=== PATIENT | male | born 2000 | race Caucasian/White ===

== ENCOUNTER 2020-02-25 12:57 | Emergency (ER) | payer BC, SELFPAY ==
[2020-02-25 13:10] VITALS: BP 134/80; PULSE 93; RESP 20; TEMP 36.7; O2SAT 96; BMI 33.9
--- NOTE | 2020-02-25 13:29 | HMH.EDUTC ---
[facility] – [place] Disposition Clinical Impression: Encounter for laboratory testing for COVID-19 virus Otitis media Qualifiers: Otitis media type: unspecified Laterality: right Qualified Code(s): H66.91 - Otitis media, unspecified, right ear Disposition: Home, Self-Care Condition on Discharge: Good Instructions: DI for COVID-19 (Suspected or Confirmed ), COVID-19 Viral Test, COVID-19: Testing and Tracing, Preventing the Spread of Coronavirus Discharge Instructions Additional Instructions: *Monitor Temp, Over the counter Motrin or Tylenol as directed/as needed Tylenol every 4 hours and Motrin every 6 hours (as long as your family doctor has told you that you can take it) for fever or pain. and straight to ER if unable to lower temp less than 101.0 after medication given *Warm salt water gargles may help to soothe the throat *Throat Lozenges *Warm fluids like tea with honey may help to soothe the throat *Sleep elevated *Humidifier/Vaporizer *Flonase 2 sprays in each nostril daily but be aware that it may take 2-3 days before you notice improvement *Bromfed may cause drowsiness. Know how it effects you (your child) before driving, caring for small child, or sending your child to school. Not other antihistamines/allergy medications while taking bromfed Follow up IMMEDIATELY for new or worsening symptoms or no Noticeable improvement over the next 48-72 hours. 911 for difficulty breathing or swallowing You were tested for today for COVID19 your test result should be back in the next 24-48 hours, you may call to the [facility] to see if your test results are back in the next 48 hours [phone] [facility] hours are 9am-9pm You was given a handout with instructions for Self Quarantine and Self isolation for while you wait on test results and what to do if they are positive If you are positive the Health Dept will be contacting you also Prescriptions: Azithromycin [Z-Phillip 250mg Tab] 250 mg PO DIRECTED #6 tab Transmission Status: Pending to [facility] Referrals: PCP,No [Primary Care Provider] - As needed Forms: Work/School Release Time of Disposition: 13:32 Medical Decision Making - Holland Inquiry Pt receiving controlled substance: No Holland was queried for this patient: No Vital Signs: 02/25/20 13:10 Temperature 98.1 F Temperature Source Oral Pulse Rate [Right Brachial] 93 H Respiratory Rate 20 Blood Pressure [Right Arm] 134/80 Blood Pressure Mean [Right Arm] 98 Blood Pressure Source [Right Arm] Automatic Cuff Blood Pressure Position [Right Arm] Sitting 02 Sat by Pulse Oximetry 96 Oxygen Delivery Method Room Air Orders (Tests/Meds): ORDERS Category Date Time Status Covid-19 Nasal PCR Sendout P&[facility] Stat Lab 02/25/20 13:02 Ordered [facility] – [place] HPI - General Stated complaint: covid exposure Time Seen by Provider: 02/25/20 13:29 Mode of Arrival: Ambulatory Source of Information: Patient Limitations: No Limitations Description of Symptoms (Recalled from Triage Doc. by RN): PATIENT REQUESTING COVID TEST D/T EXPOSURE APPROX 2 WEEKS AGO; C/O SORE THROAT, HEADACHE, AND FEVER X 2 DAYS HEENT Symptoms (Recalled from RN notes): Yes Resp Symptoms (Recalled from RN notes): No Skin Symptoms (Recalled from RN notes): No MS Symptoms (Recalled from RN notes): No Functional Status (Recalled from RN notes): WNL - History of Present Illness Provider Complaint: Patient states that he was around someone about 2 weeks ago with COVID States that for the last couple of days he has been having sore throat, fever, body aches bilateral ear pain and headache and wants to get tested for COVID - Related Data Previous Rx's Medication Instructions Recorded Azithromycin [Z-Phillip 250mg Tab] 250 mg PO DIRECTED #6 tab 02/25/20 Allergies Allergy/AdvReac Type Severity Reaction Status Date / Time No Known Allergies Allergy Verified 03/09/19 11:05 - Worker's Comp Is this a Worker's Comp case?: No [facility] History - Hepatitis A Screen D
[2020-02-25 13:45] VITALS: BP 134/80; PULSE 93; RESP 20; TEMP 36.7; O2SAT 96
[2020-02-26 09:32] LABS: Covid-19 Nasal PCR Sendout P&C NEGATIVE
== END 2020-02-25 13:46 | disposition home or self-care (01) ==
PROVIDERS: Emergency Provider Nurse Practitioner
DX: Z20.828 Contact with and (suspected) exposure to other viral communicable diseases (principal); H66.91 Otitis media, unspecified, right ear
CPT/HCPCS: 99201; U0004

== ENCOUNTER → 2021-10-26 10:38 | Outpatient (CLI) | payer BC, SELFPAY ==
--- NOTE | 2021-10-26 10:47 | US_ITS ---
FINAL REPORT CLINICAL HISTORY: intermittent bilateral testicular pain X 2 years FINDINGS: Ultrasound images of the testicles were obtained bilaterally. Color Doppler images were obtained. The right testicle measures 4.1 x 2.7 x 2.7 cm. The left testicle measures 4.0 x 3.0 x 2.3 cm. There is relative hypervascularity of the bilateral testes and of the right and left epididymis that may be related to epididymitis. Small varicoceles are seen bilaterally. No intratesticular masses are identified. There are small hydroceles bilaterally. IMPRESSION: Increased vascularity of bilateral testes and right and left epididymis. Small bilateral varicoceles. Reviewed, Interpreted and Dictated by Raj Ramos MD Transcribed by Heather Byrnes Authenticated and [facility]
== END ==
LOC: RAD 10:39
PROVIDERS: PCP Family Medicine; Visit Provider Family Medicine
DX: N50.82 Scrotal pain (principal)
CPT/HCPCS: 76870

== ENCOUNTER → 2022-01-05 11:06 | Outpatient (CLI) | payer BC, SELFPAY ==
--- NOTE | 2022-01-05 11:12 | CT_ITS ---
FINAL REPORT TECHNIQUE: Axial images of the pelvis were obtained by computed tomography after the administration of IV and oral contrast. Multiplanar reconstruction images were also reviewed. This study was performed with techniques to keep radiation doses as low as reasonably achievable, (ALARA). Individualized dose reduction techniques using automated exposure control or adjustment of mA and/or kV according to the patient's size were employed. CLINICAL HISTORY: RT INGUINAL PAIN radiates to RT scrotum FINDINGS: CT PELVIS WITH CONTRAST There is no acute fracture. There is no dislocation. The appendix is normal. There is no localized inflammatory reaction. There are multiple borderline sized bilateral inguinal lymph nodes that are nonspecific. There is no mass or fluid collection. IMPRESSION: No acute process. Reviewed, Interpreted and Dictated by Igor Martínez III, MD Transcribed by To Vargas Authenticated and [facility]
== END ==
LOC: RAD 11:06
PROVIDERS: PCP Family Medicine; Visit Provider Family Medicine
DX: R10.31 Right lower quadrant pain (principal); R10.2 Pelvic and perineal pain
CPT/HCPCS: 72193; Q9967

== ENCOUNTER → 2022-02-08 16:44 | Outpatient (CLI) | payer BC, SELFPAY ==
--- NOTE | 2022-02-08 16:47 | MR_ITS ---
PROCEDURE INFORMATION: Exam: MR Lumbar Spine Without Contrast Exam date and time: 02/08/2022 4:53 PM Age: 21 years old Clinical indication: Other: Groin pain; Additional info: Pelvic pain, groin pain. Right sided groin and testicular pain. Lower abd pain. Symptoms q4ggolt. TECHNIQUE: Imaging protocol: Magnetic resonance imaging of the lumbar spine without contrast. COMPARISON: CT PELVIS W CON 01/05/2022 11:52 AM FINDINGS: Bones/joints: There is preservation of vertebral alignment and vertebral body heights. No marrow replacing process. Spinal cord: Conus and cauda equina nerve roots are unremarkable L1-L2: No significant disc disease. No significant spinal canal stenosis. No neural foraminal stenosis. L2-L3: No significant disc disease. No significant spinal canal stenosis. No neural foraminal stenosis. L3-L4: No significant disc disease. No significant spinal canal stenosis. No neural foraminal stenosis. L4-L5: No significant disc disease. No significant spinal canal stenosis. No neural foraminal stenosis. L5-S1: No significant disc disease. No significant spinal canal stenosis. No neural foraminal stenosis. Soft tissues: Unremarkable. IMPRESSION: No significant spinal canal stenosis or neural foramina narrowing
== END ==
LOC: RAD 16:44
PROVIDERS: PCP Family Medicine; Visit Provider Family Medicine
DX: R10.2 Pelvic and perineal pain (principal); R10.31 Right lower quadrant pain; N50.811 Right testicular pain; N50.82 Scrotal pain
CPT/HCPCS: 72148; 76376

== ENCOUNTER → 2022-08-31 08:52 | Outpatient (POV) | payer BC, SELFPAY ==
[2022-08-31 08:57] VITALS: BP 149/91; PULSE 93; RESP 18; O2SAT 97; BMI 38.0
--- NOTE | 2022-08-31 09:25 | EXP.PAIN.OV ---
HPI Data of Consult Patient: new to practice Consult date: 08/31/22 Requesting Physician: Mojgan Lopez APRN Primary Care Provider: Magen Mckay MD Consult Narrative Reason for consult: Right testicle pain, right inguinal pain History of present illness: Mr. Salinas is a 22 year old male who presents today as a new patient. He is a referral from Dr. Mckay's office. Patient does state that his pain is a 6 out of 10 today. His pain is all along his right inguinal area that radiates into the right side and down to his right testicle. Patient does describe this as a constant aching, throbbing sensation with occasional sharp shooting pains. Patient states this has been going on for approximately 4 years and is unrelated to any specific injury or trauma. Patient states that the pain just started 1 day and progressively worsened over time. Patient has had multiple physicals with no findings of hernia in the past. He has had imaging as well that had no acute findings. Patient has tried [id number] Tylenol and ibuprofen along with heat and ice and topicals such as IcyHot and Biofreeze with no improvement. Patient is not on any scheduled medications. His Holland is [id number]. Its been reviewed and appropriate. CC: Mojgan Lopez APRN [facility] Disclaimer: The information contained in this section may have been updated after the patient was seen, as this information can be updated by other users. Medical History (Updated 08/31/22 @ 09:28 by Mojgan Lopez APRN) No significant past medical history Surgical History (Updated 08/31/22 @ 08:58 by Gracia Bernard RN) H/O wisdom tooth extraction Hx of tonsillectomy Family History (Updated 08/31/22 @ 08:58 by Gracia Bernard RN) Other No significant family history Social History Smoking Status: Unknown if ever smoked alcohol intake: never current occupational status: other Travel in the last 8 weeks: None Review of Systems Review of Systems Review of systems:: pertinent systems reviewed and negative unless documented below Review of systems (narrative): Review of Systems: General: No recent weight changes, no fever, no sleep disturbances Respiratory: No cough, no shortness of air, no recurring pulmonary infections Cardiovascular/peripheral vascular: No chest pain, no palpitations, no edema, no shortness of breath Gastrointestinal: No new onset incontinence, normal bowel movements reported Genitourinary: No new onset incontinence Musculoskeletal: Right inguinal pain/right testicular pain Psychiatric: [Normal mood/affect] Neurological: [Denies weakness in extremities], [denies balance issues] Meds Home Medications and Allergies Home Medications Medication Instructions Recorded Confirmed Type azithromycin 250 mg tablet 250 mg PO DIRECTED #6 tabs 02/25/20 Rx New Prescriptions to Start Prescriptions: Allergies Allergy/AdvReac Type Severity Reaction Status Date / Time No Known Allergies Allergy Verified 03/09/19 11:05 Objective Narrative: Physical Exam: General: Alert and oriented x3, no acute distress, pleasant and cooperative Lungs: Respirations even and unlabored, symmetrical chest expansion Eyes: PERRL Musculoskeletal: Flexion and extension of lumbar [spine] somewhat guarded secondary to pain, [antalgic gait noted] Neurological: Speech clear, no gross sensory deficit Oswestry index score of 18 Additional findings Additional findings: PROCEDURE INFORMATION: Exam: MR Lumbar Spine Without Contrast Exam date and time: 02/08/2022 4:53 PM Age: 21 years old Clinical indication: Other: Groin pain; Additional info: Pelvic pain, groin pain. Right sided groin and testicular pain. Lower abd pain. Symptoms [id number]. TECHNIQUE: Imaging protocol: Magnetic resonance imaging of the lumbar spine without contrast. COMPARISON: CT PELVIS W CON 01/05/2022 11:52 AM FINDINGS: Bones/joints: There is preservation of vertebral alignm
== END ==
PROVIDERS: PCP Family Medicine; Visit Provider Nurse Practitioner Family
DX: N50.811 Right testicular pain (principal); R10.31 Right lower quadrant pain
CPT/HCPCS: 99202; G0463

== ENCOUNTER 2022-09-20 08:00 | Day surgery (SDC) | payer BC, SELFPAY ==
[2022-09-20 08:14] VITALS: BP 139/85; PULSE 101; RESP 18; TEMP 36.3; O2SAT 99; BMI 38.0
[2022-09-20 08:41] VITALS: BP 143/78; PULSE 78; RESP 18; O2SAT 97
[2022-09-20 08:42] VITALS: BP 143/78; PULSE 78; RESP 18; O2SAT 97
[2022-09-20 08:48] VITALS: BP 139/98; PULSE 82; RESP 18; O2SAT 99
--- NOTE | 2022-09-20 08:55 | EXP.PAIN.PRO ---
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 Post-procedure Diagnosis:: Same. Indications for Procedure:: Patient is a very pleasant 22-year-old male that comes our clinic today for right ilioinguinal nerve block. Patient reports a 4-year history of intermittent pain in the right inguinal area including the right testicle at times. He describes pain as intermittent, dull, aching. He rates his pain 7/10. Patient describes the pain intensifies when standing for an extended length of time. 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 Patient has had urology consultation 1 year ago. General surgery consultation. No evidence of inguinal hernia. Procedure Details:: Details of the procedure explained to the patient. The patient was taken the procedure room placed in the supine position on the fluoroscopy table. The area over the right ilealo- inguinal area was cleaned using chlorhexidine as a cleansing solution. Using a 22-gauge 3 inch needle the anterior portion of the right iliac crest was accessed and 3 separate areas posterior to anterior. At each area after negative aspiration 4 cc of a solution containing 0.25% Marcaine +1% lidocaine and 40 mg of Depo-Medrol was injected. Patient tolerated procedure without difficulty. There are no complications. Plan and Disposition:: Patient was discharged without incident.
== END 2022-09-20 08:48 | disposition home or self-care (01) ==
LOC: SC.PAINP 08:04
PROVIDERS: PCP Family Medicine; Visit Provider Nurse Anesthetist, Certified Registered
DX: R10.30 Lower abdominal pain, unspecified (principal); N50.819 Testicular pain, unspecified
CPT/HCPCS: 64425; 77002; J1040

== ENCOUNTER → 2022-10-12 15:08 | Outpatient (POV) | payer BC, SELFPAY ==
[2022-10-12 15:12] VITALS: BP 137/95; PULSE 83; RESP 20; BMI 38.0
--- NOTE | 2022-10-12 15:20 | EXP.PAIN.SOA ---
[facility] Pain Management SOAP Note Subjective:: Patient is a pleasant 22-year-old male who presents today for follow-up of right ilioinguinal nerve block on 09/20/2022. We are currently treating the patient for chronic right inguinal pain, right testicle pain. Today he rates his pain a 3 out of 10. Patient states he had very minimal relief following this injection and denies any new trauma or injury. Patient was prescribed compounding cream at our last visit and he states that this did provide significant improvement for his hip pain however he states that he would often use his hip pain as a gauge to tell him what he could and could not do activity yu. He states since the cream does work so well that it numbs his pain that he is unable to determine what he should and should not do as far as activity. Patient does state this continues to be a aching, throbbing sensation that is constant. Patient has previously been tried on Celebrex by Dr. Mckay's office. Patient denies any heart or kidney issues. He states he has been thinking about trying a chiropractor to see if that helps with his pain. His Holland is [phone]. Its been reviewed and appropriate. Review of Systems: General: No recent weight changes, no fever, no sleep disturbances Respiratory: No cough, no shortness of air, no recurring pulmonary infections Cardiovascular/peripheral vascular: No chest pain, no palpitations, no edema, no shortness of breath Gastrointestinal: No new onset incontinence, normal bowel movements reported Genitourinary: No new onset incontinence Musculoskeletal: Right inguinal pain, right testicle pain Psychiatric: [Normal mood/affect] Neurological: [Denies weakness in extremities], [denies balance issues] Objective:: Physical Exam: General: Alert and oriented x3, no acute distress, pleasant and cooperative Lungs: Respirations even and unlabored, symmetrical chest expansion Eyes: PERRL Musculoskeletal: Flexion and extension of lumbar [spine] somewhat guarded secondary to pain, [antalgic gait noted] Neurological: Speech clear, no gross sensory deficit Assessment:: Right inguinal pain, right testicular pain Plan:: Patient continues to have significant pain in his groin area. I have discussed with the patient in future he might benefit from a repeat injection or possibly a peripheral nerve stimulator if he still does not get significant relief. I will send in a prescription of methocarbamol 750 mg 3 times daily and diclofenac 75 mg twice daily and provide a 2-week supply of this medication. Patient will return to clinic in 2 weeks for reevaluation of symptoms, medication refill if indicated and plan of care. Patient has been instructed to contact the clinic with any concerns before the next appointment. Dr. Lyon has reviewed this note and agrees with this plan of care. This note was dictated using voice recognition software and make contain errors or omissions. [facility] Disclaimer: The information contained in this section may have been updated after the patient was seen, as this information can be updated by other users. Medical History No significant past medical history Surgical History H/O wisdom tooth extraction Hx of tonsillectomy Family History Other No significant family history Social History Smoking Status: Current every day smoker alcohol intake: never current occupational status: other Travel in the last 8 weeks: None
== END | disposition home or self-care (01) ==
PROVIDERS: PCP Family Medicine; Visit Provider Nurse Practitioner Family
DX: R10.30 Lower abdominal pain, unspecified (principal); N50.811 Right testicular pain
CPT/HCPCS: 99212; G0463

== ENCOUNTER → 2022-10-26 08:18 | Outpatient (POV) | payer BC, SELFPAY ==
--- NOTE | 2022-10-26 08:37 | A.OFFVIS_ITS ---
[facility] Pain Management SOAP Note Subjective:: Patient is a pleasant 22-year-old male who presents today for follow-up. We are currently treating the patient for chronic right inguinal pain, right testicular pain. Today he rates his pain a 3 out of 10. Patient denies any new trauma or injury. He does state from our last visit we did prescribe methocarbamol 750 mg 3 times a day and diclofenac 75 mg twice a day that this combination has been helping provide additional relief. Patient does state that he has been able to move around easier and overall more functional. He does state when he has severe flareups there is not a whole lot that can be done. He is also prescribed compounding cream. His Holland is [id number]. Its been reviewed and appropriate. Review of Systems: General: No recent weight changes, no fever, no sleep disturbances Respiratory: No cough, no shortness of air, no recurring pulmonary infections Cardiovascular/peripheral vascular: No chest pain, no palpitations, no edema, no shortness of breath Gastrointestinal: No new onset incontinence, normal bowel movements reported Genitourinary: No new onset incontinence Musculoskeletal: Right inguinal pain, right testicular pain Psychiatric: [Normal mood/affect] Neurological: [Denies weakness in extremities], [denies balance issues] Objective:: Physical Exam: General: Alert and oriented x3, no acute distress, pleasant and cooperative Lungs: Respirations even and unlabored, symmetrical chest expansion Eyes: PERRL Musculoskeletal: Flexion and extension of lumbar [spine] somewhat guarded secondary to pain, [antalgic gait noted] Neurological: Speech clear, no gross sensory deficit Assessment:: Right inguinal pain, right testicular pain Plan:: I will refill the patient's diclofenac 75 mg twice a day and methocarbamol 750 mg 3 times a day and provide a 3-month supply of this medication. Patient will return to clinic in 3 months for reevaluation of symptoms and plan of care. Patient has been instructed to contact the clinic with any concerns before the next appointment. Dr. Lyon has reviewed this note and agrees with this plan of care. This note was dictated using voice recognition software and make contain errors or omissions. [facility] Disclaimer: The information contained in this section may have been updated after the patient was seen, as this information can be updated by other users. Medical History No significant past medical history Surgical History H/O wisdom tooth extraction Hx of tonsillectomy Family History Other No significant family history Social History Smoking Status: Current every day smoker alcohol intake: never current occupational status: other Travel in the last 8 weeks: None
[2022-10-26 09:16] VITALS: BP 143/90; PULSE 87; RESP 18; O2SAT 99; BMI 38.0
== END | disposition home or self-care (01) ==
PROVIDERS: PCP Family Medicine; Visit Provider Nurse Practitioner Family
DX: R10.30 Lower abdominal pain, unspecified (principal); N50.811 Right testicular pain
CPT/HCPCS: 99212; G0463

== ENCOUNTER 2023-09-21 12:31 | Outpatient (CLI) | payer BC, SELFPAY ==
--- NOTE | 2023-09-21 12:36 | XR_ITS ---
FINAL REPORT CLINICAL HISTORY: PAIN IN RIGHT HIP FINDINGS: An AP view of the pelvis and a frog leg views of the right hip were obtained. There is no prior exam for comparison. There is no acute fracture or dislocation. Joint space is preserved. Remaining osseous pelvis is within normal limits. Soft tissues are within normal limits. IMPRESSION: No acute osseous abnormality of the XXX hip. If pain persists, consider MR. Reviewed, Interpreted and Dictated by Keiko Brown MD Transcribed by Miguelina Encinas Authenticated and [facility]
== END 2023-09-21 23:59 | disposition home or self-care (01) ==
LOC: RAD 12:33
PROVIDERS: PCP Family Medicine; Visit Provider Family Medicine
DX: M25.551 Pain in right hip (principal)
CPT/HCPCS: 73502

== ENCOUNTER 2023-10-12 08:52 | Outpatient (CLI) | payer BC, SELFPAY ==
--- NOTE | 2023-10-12 08:56 | MR_ITS ---
FINAL REPORT CLINICAL HISTORY: RIGHT HIP PAIN FINDINGS: Multiplanar MR imaging of the right hip was performed without contrast. There is no evidence of fracture or dislocation. There is no evidence of avascular necrosis. No bony mass is identified. No labral tear is identified. No significant joint effusion is seen. The tendons are intact. The musculature is intact. No soft tissue mass or cyst is identified. IMPRESSION: No focal abnormality identified. Reviewed, Interpreted and Dictated by Igor Martínez III, MD Transcribed by Anupama Whitfield Authenticated and [facility]
== END 2023-10-12 23:59 | disposition home or self-care (01) ==
LOC: RAD 08:53
PROVIDERS: PCP Family Medicine; Visit Provider Family Medicine
DX: M25.551 Pain in right hip (principal)
CPT/HCPCS: 73721

== ENCOUNTER 2023-12-12 10:00 | Outpatient (RCR) | payer BC, SELFPAY | END 2023-12-12 23:59 | disposition home or self-care (01) | LOC: PT 10:00 | PROVIDERS: Visit Provider Physician Assistant | DX: M25.551 Pain in right hip (principal) | CPT/HCPCS: 97110; 97163; 97164; 97530 ==

== ENCOUNTER 2023-12-26 13:44 | Outpatient (CLI) | payer BC, SELFPAY ==
--- NOTE | 2023-12-26 13:47 | US_ITS ---
PROCEDURE INFORMATION: Exam: US Scrotum Exam date and time: 12/26/2023 2:08 PM Age: 23 years old Clinical indication: Scrotum pain; Additional info: Scrotal pain TECHNIQUE: Imaging protocol: Real-time ultrasound of the scrotum and contents with color Doppler and image documentation. COMPARISON: US TESTICULAR 10/26/2021 11:05 AM FINDINGS: Right testicle: Normal arterial and venous flow. Normal echogenicity. 4.3 x 3.1 x 2.3 cm. Left testicle: Normal arterial and venous flow. Normal echogenicity. 4 x 3 x 2 cm. Possible small varicocele on the left. Epididymides: Normal. Scrotum/soft tissues: Normal. No hydroceles. IMPRESSION: Testicles are unremarkable. Possible small varicocele on the left.
== END 2023-12-26 23:59 | disposition home or self-care (01) ==
LOC: RAD 13:44
PROVIDERS: PCP Physician Assistant; Visit Provider Physician Assistant
DX: N50.82 Scrotal pain (principal)
CPT/HCPCS: 76870

== ENCOUNTER 2024-01-11 08:26 | Outpatient (CLI) | payer BC, SELFPAY ==
--- NOTE | 2024-01-11 08:27 | CT_ITS ---
FINAL REPORT TECHNIQUE: Axial CT images of the abdomen and pelvis were obtained before and after the administration of IV contrast. This study was performed with techniques to keep radiation doses as low as reasonably achievable (ALARA). Individualized dose reduction techniques using automated exposure control or adjustment of mA and/or kV according to the patient's size were employed. CLINICAL HISTORY: .RLQ PAIN COMPARISON: None FINDINGS: Abdomen: The lung bases are clear. The heart is normal in size. Fatty infiltration of the liver is present without evidence of a focal mass. No biliary ductal dilatation is identified. The gallbladder. The spleen is unremarkable. No adrenal masses present. The pancreas has an unremarkable appearance. The kidneys enhance normally. The aorta is normal in caliber. There is no free fluid or adenopathy. No mass or abnormal fluid collection is seen. Precontrast images demonstrate no evidence of nephrolithiasis. Pelvis: The appendix is normal in appearance. There is a small umbilical hernia containing fat. The urinary bladder is unremarkable. No inflammatory process is seen. There are multiple small inguinal lymph nodes present, nonspecific. There is no evidence of bowel obstruction. IMPRESSION: Fatty infiltration of the liver. Small inguinal lymph nodes are present, nonspecific, likely reactive. Reviewed, Interpreted and Dictated by Igor Martínez III, MD Transcribed by Morenita Juarez Authenticated and [facility]
[2024-01-11] MEDS: IOPAMIDOL-370 (76%);100ML BOTTLE 75 ML IV (08:54)
[2024-01-11] MEDS: SODIUM CHLORIDE 0.9% 10ML SYR (RAD ONLY) 10 ML IV (08:54)
== END 2024-01-11 23:59 | disposition home or self-care (01) ==
LOC: RAD 08:27
PROVIDERS: PCP Physician Assistant; Visit Provider Surgery
DX: R10.31 Right lower quadrant pain (principal)
CPT/HCPCS: 74178; Q9967

== ENCOUNTER 2024-01-26 10:39 | Outpatient (CLI) | payer BC, SELFPAY ==
--- NOTE | 2024-01-26 10:42 | XR_ITS ---
FINAL REPORT CLINICAL HISTORY: back pain COMPARISON: None FINDINGS: 5 views of the lumbosacral spine were obtained. There is no acute fracture. There is no malalignment. The vertebrae are normal in height. The disc spaces are preserved. IMPRESSION: No acute process. Reviewed, Interpreted and Dictated by Raj Ramos MD Transcribed by Ariadna Wild Authenticated and [facility]
--- NOTE | 2024-01-26 10:42 | XR_ITS ---
FINAL REPORT CLINICAL HISTORY: back pain COMPARISON: None FINDINGS: 3 views of the thoracic spine were obtained. There is no acute fracture. There is no malalignment. The vertebrae are normal in height. The disc spaces are preserved. IMPRESSION: No acute process. Reviewed, Interpreted and Dictated by Raj Ramos MD Transcribed by Ariadna Wild Authenticated and [facility]
== END 2024-01-26 23:59 | disposition home or self-care (01) ==
LOC: RAD 10:39
PROVIDERS: PCP Physician Assistant; Visit Provider Physician Assistant
DX: M25.551 Pain in right hip (principal); M54.9 Dorsalgia, unspecified
CPT/HCPCS: 72072; 72110

== ENCOUNTER 2024-04-01 12:22 | Day surgery (SDC) | payer BC, SELFPAY ==
[2024-03-26 12:17] VITALS: BMI 39.3
[2024-04-01] MEDS: LACTATED RINGERS 1000ML 1,000 ML 50 ML IV (12:58)
[2024-04-01 13:01] VITALS: BP 151/104; PULSE 83; RESP 18; TEMP 36.2; O2SAT 97
--- NOTE | 2024-04-01 14:46 | EXP.HP ---
History of Present Illness *Admission Date: 04/01/24 *Reason for visit:: Right lower quadrant abdominal pain and blood in stool *History of present illness: Mr. Salinas is a 23-year-old gentleman who is here for diagnostic colonoscopy secondary to right lower quadrant/right inguinal pain and blood in stool. The examination is deemed medically necessary for diagnostic colonoscopy. The patient has been seen, interviewed and examined prior to the procedure by both myself and the anesthesia provider. [facility] Disclaimer: The information contained in this section may have been updated after the patient was seen, as this information can be updated by other users. Medical History No significant past medical history Surgical History H/O wisdom tooth extraction Hx of tonsillectomy Family History Other No significant family history Social History Smoking Status: Current every day smoker alcohol intake: never current occupational status: employed Travel in the last 8 weeks: None Have you lived/traveled outside US in past 30 days?: No Contact w/someone who lives/traveled outside US past 30 days?: No Exposure to someone with infectious disease in past 14 days?: No Do you have a fever (greater than 100.4 F or 38 C)?: No Have you tested positive for COVID-19: No Exposed to someone with COVID-19 in past 14 days?: No Do you have a sore throat?: No Do you have a cough?: No Do you have any weakness?: No Do you have any diarrhea?: No Are you experiencing any unusual bleeding?: No Do you have any muscle aches/pain?: No Do you have any abdominal pain?: No Are you experiencing loss of taste or smell?: No Other Medical History Have you received the Flu Vaccine for this season: No Have you received the Pneumonia Vaccine: No Review of Systems Review of Systems Review of systems (narrative): Negative *Cardiovascular Comments: Negative *Gastrointestinal Comments: Negative *Genitourinary Comments: Negative *Musculoskeletal Comments: Negative *Neurologic Comments: Negative Meds Home Medications and Allergies Home Medications ?Medication ?Instructions ?Recorded ?Confirmed ?Type paroxetine HCl 30 mg tablet 30 mg PO DAILY 01/08/24 04/01/24 History New Prescriptions to Start Prescriptions: Allergies Allergy/AdvReac Type Severity Reaction Status Date / Time Penicillins Allergy Intermediate Unknown Verified 04/01/24 13:00 allergy reaction cefaclor (From Ceclor) Allergy Unknown Verified 04/01/24 13:00 allergy reaction Exam Data for Last 24 hours Vital signs and Labs for Last 24 Hours: Temp Pulse Resp BP Pulse Ox O2 Del Method 97.1 F L 83 18 151/104 H 97 Room Air 04/01/24 13:01 04/01/24 13:01 04/01/24 13:01 04/01/24 13:01 04/01/24 13:01 04/01/24 13:01 *Routine HEENT Exam Head: Present normocephalic Eye: Present EOMI and PERRL ENT: Present mucous membranes moist *Routine Neck Exam Neck: Present supple *Routine Respiratory Exam Respiratory: Present CTA bilaterally *Routine Cardiovascular Exam Cardiovascular: Present RRR *Routine Abdominal Exam Abdominal: Present soft and normoactive bowel sounds; Absent tenderness *Routine Rectal Exam Rectal:: deferred *Routine Genitalia Exam Genitalia:: deferred *Routine Extremities Exam Extremities: Absent cyanosis, clubbing or edema *Routine Skin Exam Skin: Present warm; Absent rash *Routine Neurological Exam Neurological: Present alert and oriented X3 Assessment and Plan *Assessment and plan (1) Right inguinal pain: Problem Comment: No definitive abnormality noted per CT scan. The patient believes his symptoms are worse with bowel movements. Status: Acute Category: Medical Code(s): R10.31 - Right lower quadrant pain (2) Right lower quadrant abdominal pain: Status: Acute Category: Medical Code(s): R10.31 - Right lower quadrant pain (3) Blood in stool: Status: Acute Category: Medical Code(s): K92.1 - Melena Plan A/P: 1. Right inguinal pain/right lower quadrant pain with blood in the stool is the preprocedural diagnosis. The patient will be anesthetized/sedated using MAC sedation. The patient has been seen and examined. Cardiac and lung assessment prior to the examination is stable. Proceed with planned diagnostic colonoscopy
[2024-04-01 14:54] VITALS: O2SAT 100
--- NOTE | 2024-04-01 14:58 | HMH.PROCNOTE ---
[facility] Procedure Note Date: 04/01/24 Time: 15:11 Procedure Note:: Colonoscopy Procedure Report: Colonoscopy with monopolar ablation/coagulation of internal hemorrhoids Endoscopist: Jatin John II, MD Referring physician: Maria Guadalupe Purcell PA-C Date of Procedure: April 01, 2024 Equipment: Olympus 190 variable stiffness pediatric colonoscope Sedation: MAC sedation Indication: Mr. Salinas is a 23-year-old gentleman with right inguinal pain and some right lower quadrant pain. He also notes bright red blood on the toilet tissue that may occur once or twice weekly. This has been going on for several years. He does state that the pain will radiate down into his right testicle. He does have a lot of bloating, belching, cramps and gassiness. His bowel movements are often mushy or loose. His CAT scan of the abdomen and pelvis was unremarkable. He reports no family history of colitis, Crohn's disease or colon cancer. Procedure: Prior to the procedure, a history and physical exam was performed, and patient's medications and allergies were reviewed. The risks, benefits and alternatives of the sedation and procedure were discussed with the patient. All questions were answered and informed consent was obtained. The patient was brought to the procedure room. Patient identification and proposed procedure were verified by the physician and the nurse. The patient was placed in a left lateral decubitus position and the scope was passed under direct vision. Throughout the procedure, the patient's blood pressure, pulse, and oxygen saturations were monitored continuously. The colonoscopy was accomplished without difficulty. The patient tolerated the procedure well. Findings: On digital rectal examination there was normal rectal tone. There were no external hemorrhoids. The colonoscope was introduced through the anal canal to the rectum and advanced to the cecum. The ileocecal valve and appendiceal orifice were identified. The scope was advanced a short distance into the ileum which appeared grossly normal. The scope was then withdrawn into the colon. The cecum, ascending, transverse, descending, sigmoid and rectum were grossly normal. There were no mucosal abnormalities identified. Upon retroflexion within the rectum there were grade 2 internal hemorrhoids.3 columns of hemorrhoids were ablated using monopolar ablation/coagulation to destruction. The preparation was excellent throughout with [place] Preparation Score of 9. The cecal time was 12 minutes. Impression: 1. Normal colonoscopy with intubation of the terminal ileum 2. Grade 2 internal hemorrhoids status post monopolar ablation/coagulation Plan: I would encourage psyllium fiber supplementation on a long-term daily maintenance basis. It is also important to test for enzyme deficiencies in persons that suffer from gassiness, bloating, abdominal discomfort and bowel irregularity. This includes persons that have previously been diagnosed with IBS (which is a diagnosis of exclusion). The 2 most common digestive enzyme deficiencies are CSID (sucrase isomaltase deficiency where you don't have enough sucrase to digest certain sugars) and exocrine pancreatic insufficiency (EPI) when your pancreas doesn't produce enough of the enzymes necessary to digest carbohydrates, proteins and fats. The testing for these common enzyme deficiencies is simple and noninvasive. For CSID, this involves doing the C-13 sucrose breath test. In the past, the gold standard for diagnosis of CSID was taking biopsies of the middle intestine (jejunum or lower duodenum) with a special enzyme assay that is costly and only performed in a few regional centers (none in the [facility]). The breath test is certainly less invasive and less complex as well as being accurate. It is the favored form of diagnostic test for CSID presently. The accurate test for EPI (exocrine pancreatic insufficiency) is the stool/fecal elastase test and which a stool sample is checked for the pancreatic digestive enzymes trypsin and elastase which should normally be present. If the enzyme testing is normal, I would consider low FODMAP diet.
--- NOTE | 2024-04-01 14:59 | EXP.ANES.CKL ---
[facility] Disclaimer: The information contained in this section may have been updated after the patient was seen, as this information can be updated by other users. Medical History No significant past medical history Surgical History H/O wisdom tooth extraction Hx of tonsillectomy Family History Other No significant family history Social History Smoking Status: Current every day smoker alcohol intake: never substance use type: marijuana current occupational status: employed Travel in the last 8 weeks: None [facility] Anesthesia Checklist Patient Identification Patient Identification: Arm Band Structural Data Admitted From: Home Planned Operative Procedure/s: Colonoscopy Consent for Planned Operative Procedure(s) Verified: Yes Verified Documents: Surgical Consent and History and Physical NPO Status Verified Time NPO: 00:00 Additional verifications Anesthesia Reactions: No Hx Blood Transfusions: No Blood Transfusion Reaction: No Airway Assessment Mallampati Score:: Class II C-Spine Mobility Assessed: Yes TMJ Mobility Assessed: Yes Dentition: Good Dentition Neurological Assessment Level of Consciousness: Awake, Alert and Appropriate Anesthesia Plan Anesthesia Risk discussed: Yes Anesthesia Plan: Verified ASA Class: II Anesthesia Type: MAC
[2024-04-01 15:15] VITALS: BP 140/87; PULSE 80; RESP 16; TEMP 36.6; O2SAT 100
[2024-04-01 15:25] VITALS: BP 145/89; PULSE 62; RESP 16; O2SAT 100
[2024-04-01 15:35] VITALS: BP 125/75; PULSE 66; RESP 16; O2SAT 100
[2024-04-01 15:45] VITALS: BP 137/82; PULSE 56; RESP 16; O2SAT 100
== END 2024-04-01 15:46 | disposition home or self-care (01) ==
PROVIDERS: PCP Physician Assistant; Visit Provider Internal Medicine Gastroenterology
PROC: (CPT 45388; principal; 2024-04-01 14:00)
DX: R10.31 Right lower quadrant pain (principal); K92.1 Melena; K64.1 Second degree hemorrhoids
CPT/HCPCS: 45388; J7120

== ENCOUNTER 2024-06-12 09:46 | Outpatient (CLI) | payer BC, SELFPAY ==
--- NOTE | 2024-06-12 10:00 | US_ITS ---
FINAL REPORT CLINICAL HISTORY: right hip and groin pain FINDINGS: Limited sonographic images of the right groin were obtained. There are numerous borderline enlarged lymph nodes. At least 5 are identified, largest measuring up to 15 mm. No fluid collection is identified. There is no obvious hernia. IMPRESSION: Mild nonspecific right inguinal adenopathy. No abscess identified. Consider directed ultrasound follow-up in 2 to 3 months. Reviewed, Interpreted and Dictated by Héctor Osborn MD Transcribed by Anupama Whitfield Authenticated and [facility]
== END 2024-06-12 23:59 | disposition home or self-care (01) ==
LOC: RAD 09:47
PROVIDERS: PCP Physician Assistant; Visit Provider Surgery
DX: R09.89 Other specified symptoms and signs involving the circulatory and respiratory systems (principal)
CPT/HCPCS: 76882

== ENCOUNTER 2024-06-19 09:42 | Outpatient (CLI) | payer BC, SELFPAY ==
[2024-06-19 10:03] VITALS: BP 140/89; PULSE 86; RESP 16; TEMP 36.7; O2SAT 98
[2024-06-19] MEDS: KETOROLAC 30MG/ML VIAL 15 MG IM (10:03)
[2024-06-19 10:09] LABS: Basophils # 0.1 K/mm3 (0-0.2); Basophils % 0.5 % (0.1-2.0); Eosinophils # 0.6 K/mm3 (0.0-0.4); Eosinophils % 6.1 % (0.1-12.0); Hematocrit 46.9 % (42.0-52.0); Hemoglobin 16.5 g/dL (14.1-18.0); Lymphocytes # 3.5 K/mm3 (0.7-4.5); Lymphocytes % 34.7 % (10-50); Mean Corpuscular HGB Conc 35.2 g/dL (31.8-35.4); Mean Corpuscular Hemoglobin 31.7 pg (27.0-31.2); Mean Platelet Volume 10.1 fl (7.4-10.4); Monocytes # 0.7 K/mm3 (0.1-1.0); Monocytes % 6.5 % (1.7-9.3); Neutrophils # 5.3 K/mm3 (1.8-7.8); Neutrophils % 52.1 % (37.0-80.0); Nucleated Red Blood Cells # 0 10^3/uL; Nucleated Red Blood Cells % 0 %; Platelet Count 284 K/mm3 (142-424); Red Blood Count 5.21 M/mm3 (4.60-6.20); Red Cell Distribution Width 12.3 % (11.5-17.5); Red Cell Distribution Width-SD 40.5 fL; White Blood Count 10.1 K/mm3 (4.8-10.8)
[2024-06-19 10:16] LABS: Chloride 104 mmol/L (98-107); Potassium 4.1 mmoL/L (3.5-5.1); Sodium 140 mmol/L (136-145)
[2024-06-19 10:19] LABS: Anion Gap 12.1 mEq/L (5-15); Blood Urea Nitrogen 14 mg/dl (9-20); Calcium 9.1 mg/dl (8.4-10.2); Carbon Dioxide 28 mmol/L (22.0-30.0); Estimated Glomerular Filt Rate 136 ml/min (>60); GFR (African American) 165 ML/MIN (>60); Glucose 106 mg/dl (74-100)
== END 2024-06-19 10:25 | disposition home or self-care (01) ==
LOC: INF 09:43
PROVIDERS: PCP Physician Assistant; Visit Provider Surgery
DX: R10.31 Right lower quadrant pain (principal)
CPT/HCPCS: 36415; 80048; 85025; 96372; J1885

== ENCOUNTER 2024-08-07 08:25 | Outpatient (CLI) | payer BC, SELFPAY ==
--- NOTE | 2024-08-07 08:27 | US_ITS ---
FINAL REPORT CLINICAL HISTORY: Pain // lymph nodes COMPARISON: 06/12/2024 FINDINGS: Limited sonographic imaging was obtained of the soft tissues in the right inguinal region. Again seen are mildly prominent benign-appearing lymph nodes in the right groin. The largest measures 20 mm. No other mass or fluid collection identified. IMPRESSION: Mild right inguinal lymphadenopathy, nonspecific and favored to be reactive. Reviewed, Interpreted and Dictated by Keiko Brown MD Transcribed by Shannon Garduno Authenticated and . [facility]
--- OUTSIDE RECORDS SUMMARY | 2024-08-07 08:28 | XMS_ITS | Data Portability ---
Author Organization [facility] Clinalonso gallegos [facility] [place] [facility] Address [address] [place] [address] Care Team Providers Care Neurourologist Name Role Phone RONI CHILDRESS Referring Provider [phone] Assessment Encounter Date Assessment Date Assessment LastModified by Organization Details LastModified Time 12/16/2021 12/16/2021 Medical management of pain in scrotum with rest, no surgical intervention and no antibiotics. No acute identifiable abnormality. Scrotal ultrasound results reviewed with patient. [email or web address] Not available 12/21/2021 08:00:47 Plan of Treatment Reminders Order Date Submit Date Provider Last Modified By Organization Details Last Modified Time Details Appointments None record ed. Lab None record ed. Referral None record ed. Procedures None record ed. Surgeries None record ed. Imaging None record ed. Medication Orders None record ed. Patient TargetsNo targets recorded. Patient InstructionsNo instructions recorded. Reason for Referral None Reported. Procedures Surgical History Date Name Laterality Status Provider Name and Address Organization Details Recorded Time Tonsillectomy completed [facility] 12/17/2021 08:35:56 [place] Teeth Extraction completed [facility] 12/17/2021 08:36:02 Imaging Results None recorded. Procedure Notes None recorded. Medical Equipment None Reported. Allergies Allergen ID Allergen Name Allergen Category Reaction Reaction Severity Criticality Documentation Date Start Date Code Code System Note Provider Name and Address Organization Details Recorded Time 619799 Product containin g penicilli n (product) medicatio n Not available Not available Not available 12/17/2021 39899 8001 SNOMED [facility] 08:34:57 357334 Ceclor medicatio n Not available Not available Not available 12/17/202191078 5 RxNorm Tamiabharati Gutierrez [facility] 08:35:03 Medications Name Sig Start Date Stop Date Status Note LastModified by Organization Details LastModified Time nabumetone 750 mg tablet Take 1 tablet twice a day by oral route. active Not Available Not Available No t Available Vitals Date Recorded Body height Body mass index (BMI) Body weight Provider Name and Address Organization Details Last Updated DateTime 12/16/2021 182.88 cm 38 kg/m2 234069.86 [facility] 12/17/2021 08:34:43 Social History Question Answer Notes LastModified by [employer] Details LastModified Time Tobacco Smoking Status Never Smoker Tamia Gutierrez [facility] 12/17/2021 08:35:49 What Is Your Relationship Status? Single Information not available 12/17/2021 Sex: Unknown Functional Status Question Answer Note LastModified by [employer] Details LastModified Time Do you or have you ever used any other forms of tobacco or nicotine? Yes Information not available 12/17/2021 What is your level of alcohol consumption? Occasional Information not available 12/17/2021 Do you or have you ever used smokeless tobacco? Former smokeless tobacco user Information not available 12/17/2021 Mental Status None recorded. Family History Relationship Description Onset Age of this Age Resolved Age Notes LastModified by Organization Details LastModified Time Father No current problems or disability Not available 12/17 08:35:25 Mother No current problems or disability Not available 12/17 08:35:25 Medical History No medical history recorded. Past Encounters Encounter ID Performer Location Encounter Start Date Encounter Closed Date Diagnosis/Indication Diagnosis SNOMED-CT Code Diagnosis ICD10 Code Diagnosis Note [id number] HUBERT MIRANDA MD [facility] [address] [place] [address] ,[address] [place] [address] 12/16/2021 14:41:35 12/21/2021 18:59:49 Pain in scrotum 94518842 N50.82 Inguinal pain 357047796 R10.2 Health Concerns Section Related Observation LastModified by Organization Detai ls LastModified Time None Recorded Concern Status LastModified by Organization Details LastModified Time None Recorded Advance Directives Directive None Recorded Payers Insurance Date Sequence Insurance Name Policy Number Policy Mitchell Covered Member ID Mitchell Member ID Guarantor Name 12/21/2021 1 [employer] [id number] [place] [id number] [place] Notes Date Note Type Note Provider Name and Address Organization Details Recorded Time 12/16/2021 text/html 21-year-old male in the office for my initial evaluation and for discussion of scrotal pain. For 2 years complains of pain primarily from the right testicle then towards the groin area. Denies seeing swelling, but gets the pressure of heaviness. No trauma to the area. No hesitancy. Urgency due to holding urination. Daytime frequency every 4-5 hours. No nocturia. No gross hematuria. No dysuria. Scrotal ultrasound on 10/26/2021 showed no testicular masses or lesions. He had increased vascularity of bilateral testicles and right and left epididymis with small bilateral varicoceles. HUBERT MIRANDA MD [address] [place] [address], [phone], [facility] 12/21/2021 08:00:51
== END 2024-08-07 23:59 | disposition home or self-care (01) ==
PROVIDERS: PCP Physician Assistant; Visit Provider Surgery
DX: R59.0 Localized enlarged lymph nodes (principal); R10.31 Right lower quadrant pain
CPT/HCPCS: 76882

== ENCOUNTER 2024-08-26 10:52 | Outpatient (POV) | payer BC, SELFPAY ==
--- OUTSIDE RECORDS SUMMARY | 2024-02-23 06:15 | XMS_ITS ---
Author Organization Renate Address [address] [facility] 36 [facility] [address] [place] [id number] Care Team Providers Care Hand Edger Name Role Phone Ismael Brandt Primary Care Provider Enriqueta Velazquez Unavailable [phone] Maria Guadalupe Purcell Unavailable [phone] Allergies Allergen (clinical drug ingredient) Drug/Non Drug Allergy documented on EMR Reaction Allergy Type Onset Date Status cefaclor Ceclor (uncoded) Unknown Allergy Act gaudencio PCN (uncoded) Unknown Allergy Active REASON FOR VISIT help with appeal request Medications Medication SIG (Take, Route, Frequency, Duration) Notes Start Date End Date Status Cyclobenzaprine HCl 10 MG 1 tab(s) Orall y three times a day as needed 01/26/2024 Active PARoxetine HCl 30 MG 1 tablet in the mor isatu Orally Once a day for 30 day(s) 01/05/2024 Active Vital Signs Blood pressure systolic 122 mm Hg 02/23/20 24 Blood pressure diastolic 90 mm Hg 024 Heart Rate 98 /min 02/23/2024 Height 71.50 in 02/23/2024 Weight 301.4 lbs 02/23/2024 BMI 41.45 kg/m2 02/23/2024 Encounters Encounter Location Date Provider Diagnosis [facility] [address] [place] [facility] 36 [facility] [address] [place] [phone] 02/23/2024 Maria Guadalupe Purcell Scrotal pain N50.82 ; Right hip pain M25.551 and Right inguinal pain R10.31 Assessments Encounter Date Diagnosis (ICD Code) Assessment Notes Treatment Notes Treatment Clinical Notes Section Notes 02/23/2024 Scrotal pain (ICD-10 - N50.82) 02/23/2024 Right hip pain (ICD-10 - M25.551) Patient has need seen 4 specialists and no one can give him a reason for his hip pain. He does have a c-scope scheduled at the end of March with gastroenterology. He has returned to work with restrictions and these restrictions need to continue through March 07. He was denied for part of his claim and has paperwork today to appeal this denial. I printed every document from our office along with imaging for him to submit. He is still having hip pain and I recommended he f/u with ortho for further testing. 02/23/2024 Right inguinal pain (ICD-10 - R10.31) Plan Of Treatment Treatment Notes Assessment Notes Right hip pain Patient has need see n 4 specialists and no one can give him a reason for his hip pain. He does have a c-scope scheduled at the end of March with gastroenterology. He has returned to work with restrictions and these restrictions need to continue through March 07. He was denied for part of his claim and has paperwork today to appeal this denial. I printed every document from our office along with imaging for him to submit. He is still having hip pain and I recommended he f/u with ortho for further testing. Next Appt Details Follow Up: with Renu guzman n: Provider Name:Magen Pierre , 08/27/2024 10:00:00 AM, [address] [place] [address] [facility], [address], [place], [phone], Progress Notes * ALBINO MANDUJANODOB:2000 ( 24 yo M)Acc No.[id number]:02/23/2024 Progress Notes Patient: ALBINO COHEN Provider: REHAN Weinstein :2000 A ge:23 Y S ex:Male Date:02/23/2024 Address:[address] [facility], [id number] Pcp:Ismael Brandt Subjective: * Chief Complaints: * 1 . Help with appeal request. * HPI: H PI: 23 year old male presents with c/o Patient is here today for?Pt is here today for help with an appeal request for his FMLA. * ROS: D ERMATOLOGY: no R km. n o H dong. G ASTROENTEROLOGY: no N ausea. n o V omiting. U ROLOGY: no D ifficulty urinating. n o B lood in urine. * Medical History: M edical History Verified. * Surgical History: T onsillectomy 04/2005, [place] Teeth 2019. * Family History: F ather: alive. M other: alive. P aternal Grand Father: alive. P aternal Grand Mother: alive. M aternal Grand Father: alive. M aternal Grand Mother: alive. 1 brother(s) - healthy. . * Social History: C URRENT TOBACCO USE S moking Status: Patient does NOT smoke. H ome smoke detector use: yes. Past smoking status: no, PPD: , years: ,determination:. * Medications: T aking Cyclobenzaprine HCl 10 MG Tablet 1 tab(s) Orally three times a day as needed , Taking PARoxetine HCl 30 MG Tablet 1 tablet in the morning Orally Once a day , Medication List reviewed and reconciled with the patient * Allergies: P CN, Ceclor. Objective: * Vitals: W t:301.4, Temp:98.3, BP:122/90, HR:98, Nurse:ESAU, Ht: 71.50, BMI:41.45. * Examination: G eneral Examination: General Appearance: N AD. Assessment: * Assessment: 1. S crotal pain - N50.82 (Primary) 2 . R ight hip pain - M25.551 ? 3 . R ight inguinal pain - R10.31 Plan: * Treatment: * Follow Up: w ith ortho * Billing Information: * Visit Code: 53739 Office Visit, Est Pt., Level 3. * Procedure Codes: * Electronic signature of REHAN Kirkland on 08/26/2024 at 11:20 AM EDT Sign off status: Pending * Provider: REHAN Weinstein Date: 1 04/25/2023 Generated for Printi ng/Faanetteg/eTransmitting on: 0 08/26/2024 11:20 AM EDT History and Physical Notes * HPI (History of Present Illness) Category Sub-Category Detail Notes Category Not es HPI Patient is here today for Pt is here today for help with an appeal request for his FMLA Examination Category Sub-Category Detail Notes Category Not es General Examination General Appearance: NAD
--- OUTSIDE RECORDS SUMMARY | 2024-04-04 06:45 | XMS_ITS ---
Author Organization [facility]ate Address [address] [place] [facility] [address] [place] [id number] Care Team Providers Care Vice President Of Consulting Services Name Role Phone Ismael Brandt Primary Care Provider Enriqueta Velazquez Unavailable [phone] Maria Guadalupe Purcell Unavailable [phone] Allergies Allergen (clinical drug ingredient) Drug/Non Drug Allergy documented on EMR Reaction Allergy Type Onset Date Status cefaclor Ceclor (uncoded) Unknown Allergy Act gaudencio PCN (uncoded) Unknown Allergy Active REASON FOR VISIT medical paperwork Medications Medication SIG (Take, Route, Frequency, Duration) Notes Start Date End Date Status Cyclobenzaprine HCl 10 MG 1 tab(s) Orall y three times a day as needed 01/26/2024 Active PARoxetine HCl 30 MG 1 tablet in the mor isatu Orally Once a day for 30 day(s) 01/05/2024 Active Vital Signs Blood pressure systolic 120 mm Hg 04/04/19 25 Blood pressure diastolic 80 mm Hg 025 Heart Rate 105 /min 04/04/2024 Height 71.50 in 04/04/2024 Weight 300.6 lbs 04/04/2024 BMI 41.34 kg/m2 04/04/2024 Encounters Encounter Location Date Provider Diagnosis [place] [address] [place] [address] [facility] [address] [place] [phone] 04/04/2024 Maria Guadalupe Purcell Status post colonosc opy Z98.890 Assessments Encounter Date Diagnosis (ICD Code) Assessment Notes Treatment Notes Treatment Clinical Notes Section Notes 04/04/2024 Status post colonoscopy (ICD-10 - Z98.890) Patient will call his short term disability group. The paperwork will likely need to be filled out by Dr. Shepard's office as they have placed him off work the rest of the week. He will speak with the disability group to find out what he needs to have done. Plan Of Treatment Treatment Notes Assessment Notes Status post colonoscopy Patient will jose l his short term disability group. The paperwork will likely need to be filled out by Dr. Shepard's office as they have placed him off work the rest of the week. He will speak with the disability group to find out what he needs to have done. Next Appt Details Follow Up: with GI, Reason: Provider Name:Magen Pierre ry, 08/27/2024 10:00:00 AM, [address], [address], [place], [place], [phone], Progress Notes * ALBINO MANDUJANODOB:2000 ( 24 yo M)Acc No.[id number]:04/04/2024 Progress Notes Patient: ALBINO COHEN Provider: REHAN Weinstein :2000 A ge:24 Y S ex:Male Date:04/04/2024 Address:[address] [id number] Pcp:Ismael Brandt Subjective: * Chief Complaints: * 1 . Medical paperwork. * HPI: H PI: 24 year old male presents with c/o Patient is here today for?Pt sts he is here today to discuss some [place] paperwork for his recovery time. He had a c-scope by Dr. John on Monday and had to have ablation of some internal hemorrhoids. He is going to have further testing for d igestive enzyme deficiencies. He states he was told to remain off work the rest of this week and that he could return to work on Monday.. * ROS: D ERMATOLOGY: no R km. n o H dong. G ASTROENTEROLOGY: no N ausea. n o V omiting. U ROLOGY: no D ifficulty urinating. n o B lood in urine. * Medical History: M edical History Verified. * Surgical History: T onsillectomy 04/2005, [place] Te[facility] 2019, C-scope with internal hemorrhoid ablation 04/01/24. * Family History: F ather: alive. M [...] P CN, Ceclor. Objective: * Vitals: W t:300.6, Temp:98.4, BP:120/80, HR:105, Nurse:ESAU, Ht: 71.50, BMI:41.34. * Examination: G eneral Examination: General Appearance: N AD. Chest: n ormal shape and expansion. Heart: R SR. Lungs: c lear to auscultation. Abdomen: bowel sounds present, soft and nontender, no organomegaly or masses, no guarding or rigidity. Assessment: * Assessment: 1. S tatus post colonoscopy - Z98.890 (Primary) S pecify :with hemorrhoid ablation Plan: * Treatment: * Follow Up: w ith GI * Billing Information: * Visit Code: 95733 Office Visit, Est Pt., Level 3. * Procedure Codes: * Electronic signature of REHAN Kirkland on 08/26/2024 at 11:21 AM EDT Sign off status: Pending * Provider: REHAN Weinstein Date: 0 04/04/2024 Generated for Dawn delaney/Melinda/Jazmynitting on: 0 08/26/2024 11:21 AM EDT History and Physical Notes * HPI (History of Present Illness) Category Sub-Category Detail Notes Category Not es HPI Patient is here today for Pt sts he is here today to discuss some FMLA paperwork for his recovery time. He had a c-scope by Dr. John on Monday and had to have ablation of some internal hemorrhoids. He is going to have further testing for digestive enzyme deficiencies. He states he was told to remain off work the rest of this week and that he could return to work on Monday. Examination Category Sub-Category Detail Notes Category Not es General Examination Heart: RSR Lungs: clear to auscultatio n Abdomen: bowel sounds present , soft and nontender, no organomegaly or masses, no guarding or rigidity General Appearance: NAD Chest: normal shape and exp ansion
--- OUTSIDE RECORDS SUMMARY | 2024-07-05 09:15 | XMS_ITS ---
Author Organization [facility] Address [address] [facility] [place] [address] [facility] [address] [place] [id number] Care Team Providers Care Plasterer Foreman Name Role Phone Ismael Brandt Primary Care Provider Enriqueta Velazquez Unavailable [phone] Maria Guadalupe Purcell Unavailable [phone] Allergies Allergen (clinical drug ingredient) Drug/Non Drug Allergy documented on EMR Reaction Allergy Type Onset Date Status cefaclor Ceclor (uncoded) Unknown Allergy Act gaudencio PCN (uncoded) Unknown Allergy Active REASON FOR VISIT short term disability pw Medications Medication SIG (Take, Route, Frequency, Duration) Notes Start Date End Date Status Cyclobenzaprine HCl 10 MG 1 tab(s) Orall y three times a day as needed 01/26/2024 Active PARoxetine HCl 30 MG 1 tablet in the mor isatu Orally Once a day for 90 days Active Vital Signs Blood pressure systolic 120 mm Hg 07/06/19 25 Blood pressure diastolic 82 mm Hg 025 Heart Rate 89 /min 07/05/2024 Height 71.50 in 07/05/2024 Weight 293.8 lbs 07/05/2024 BMI 40.4 kg/m2 07/05/2024 Encounters Encounter Location Date Provider Diagnosis [place] [address] [place] [address] [facility] [address] [place] [id number] 07/05/2024 Maria Guadalupe Purcell Right hip pain M25.5 51 Assessments Encounter Date Diagnosis (ICD Code) Assessment Notes Treatment Notes Treatment Clinical Notes Section Notes 07/05/2024 Right hip pain (ICD-10 - M25.551) Patient has not been following restrictions at work since they were set and has been doing normal job duties and managing the pain. I have done a peer to peer review and it was recommended the patient have a functional capacity exam. I feel this is a good idea but at this point he is currently operating with no restrictions. Will continue f/u with Dr. Bartlett due to enlarged lymph nodes in the right groin, which could be the source of the pain. Plan Of Treatment Treatment Notes Assessment Notes Right hip pain Patient has not been following restrictions at work since they were set and has been doing normal job duties and managing the pain. I have done a peer to peer review and it was recommended the patient have a functional capacity exam. I feel this is a good idea but at this point he is currently operating with no restrictions. Will continue f/u with Dr. Bartlett due to enlarged lymph nodes in the right groin, which could be the source of the pain. Next Appt Details Follow Up: prn, Reason: Provider Name:Magen Pierre , 08/27/2024 10:00:00 AM, [address] [place] [facility] [address] [facility], [address], [place], [place], [phone], Progress Notes * STONE MANDUJANODOROTEODOB:2000 ( 24 yo M)Acc No.[id number]:07/05/2024 Progress Notes Patient: ALBINO COHEN Provider: REHAN Weinstein :2000 A ge:24 Y S ex:Male Date:07/05/2024 Address:[address] [place] [address] [id number] Pcp:Ismael Brandt Subjective: * Chief Complaints: * 1 . Short term disability pw. * HPI: H PI: 24 year old male presents with c/o Patient is here today for?Pt is here today for short term disability paperwork. * ROS: D ERMATOLOGY: no R km. n o H dong. G ASTROENTEROLOGY: no N ausea. n o V omiting. U ROLOGY: no D ifficulty urinating. n o B lood in urine. * Medical History: M edical History Verified. * Surgical History: T onsillectomy 04/2005, [facility] 2019, C-scope with internal hemorrhoid ablation [...] P CN, Ceclor. Objective: * Vitals: W t: 293.8, Temp: 98.2, BP: 120/82, HR: 89, Nurse: vinnie, Ht: 71.50, BMI:40.4. * Examination: G eneral Examination: General Appearance: N AD. Chest: n ormal shape and expansion. Heart: R SR. Lungs: c lear to auscultation. Extremities: s till some ttp in the right groin area, full ROM of the right hip. Assessment: * Assessment: 1. R ight hip pain - M25.551 (Primary) Plan: * Treatment: * Follow Up: p rn * Billing Information: * Visit Code: 47749 Office Visit, Est Pt., Level 3. * Procedure Codes: * Electronic signature of REHAN Kirkland on 08/26/2024 at 11:20 AM EDT Sign off status: Pending * Provider: REHAN Weinstein Date: 0 07/05/2024 Generated for Dawn delaney/Melinda/Jazmynitting on: 0 08/26/2024 11:20 AM EDT History and Physical Notes * HPI (History of Present Illness) Category Sub-Category Detail Notes Category Not es HPI Patient is here today for Pt is here today for short term disability paperwork Examination Category Sub-Category Detail Notes Category Not es General Examination Heart: RSR Lungs: clear to auscultatio n Extremities: still some ttp in th e right groin area, full ROM of the right hip General Appearance: NAD Chest: normal shape and exp ansion
[2024-08-26 11:09] VITALS: BP 140/88; PULSE 99; RESP 18; O2SAT 98; BMI 40.6
--- NOTE | 2024-08-26 11:11 | EXP.PAIN.SOA ---
[facility] Disclaimer: The information contained in this section may have been updated after the patient was seen, as this information can be updated by other users. Medical History No significant past medical history Surgical History H/O wisdom tooth extraction Hx of tonsillectomy Family History Other No significant family history Social History Smoking Status: Current every day smoker alcohol intake: never substance use type: marijuana current occupational status: employed Travel in the last 8 weeks?: None PM Subjective & Objective Subjective Subjective:: Patient is a pleasant 24-year-old who presents today for worsening right inguinal pain. Patient rates his pain a 7 out of 10 today. He states it has gotten much worse since our last visit. Patient was seen in our office back in 2022 due to very similar pain. Patient states that he still has the constant pain there in his right groin that is worse with increased activity. He does state it will go into his right testicle. He states that the flareups are severe and do interfere with his ability perform activities of daily living such as cooking and cleaning. Patient has seen a specialist they are with general surgery and they are not recommending surgical intervention at this time. He does state that they had done updated imaging and it did show some enlarged lymph nodes. Patient was recommended more conservative treatment including trying injections. Patient was previously from our office prescribed methocarbamol 750 mg 3 times a day and diclofenac 75 mg twice a day. Patient states he has not been doing any of these. He states that he did get a different type of muscle relaxer that he takes currently but does not recall why he stopped taking the diclofenac. Patient denies any heart or kidney issues. Patient was also prescribed compounded cream however states that once his prescription ran out he did not realize he could get more. His [place] has been reviewed and is appropriate. Review of Systems: General: No recent weight changes, no fever, no sleep disturbances Respiratory: No cough, no shortness of air, no recurring pulmonary infections Cardiovascular/peripheral vascular: No chest pain, no palpitations, no edema, no shortness of breath Gastrointestinal: No new onset incontinence, normal bowel movements reported Genitourinary: No new onset incontinence Musculoskeletal: Right inguinal pain Psychiatric: [Normal mood/affect] Neurological: [Denies weakness in extremities], [denies balance issues] Pain at rest (0-10 scale): 7 Objective Objective:: Physical Exam: General: Alert and oriented x3, no acute distress, pleasant and cooperative Lungs: Respirations even and unlabored, symmetrical chest expansion Eyes: PERRL Musculoskeletal: Flexion and extension of lumbar [spine] somewhat guarded secondary to pain, point tenderness along right inguinal/groin area Neurological: Speech clear, no gross sensory deficit Has patient had previous pain injection?: No Conservative treatment options previously tried: Home exercise plan Length of treatment: Longer than 12 weeks Meds Home Medications and Allergies Home Medications ?Medication ?Instructions ?Recorded ?Confirmed ?Type paroxetine HCl 30 mg tablet 30 mg PO DAILY 01/08/24 07/31/24 History ketorolac 10 mg tablet 10 mg PO Q8H 5 days #15 tabs 06/19/24 07/31/24 Rx clarithromycin 500 mg tablet 500 mg PO Q12H 10 days #20 tabs 08/01/24 Rx New Prescriptions to Start Prescriptions: Allergies Allergy/AdvReac Type Severity Reaction Status Date / Time Penicillins Allergy Intermediate Unknown Verified 07/31/24 10:38 allergy reaction cefaclor (From Ceclor) Allergy Unknown Verified 07/31/24 10:38 allergy reaction Assessment and Plan *Assessment and plan (1) Right inguinal pain: Problem Comment: No definitive abnormality noted per CT scan. No herniation noted per ultrasound. Borderline enlarged lymph nodes noted per ultrasound. Status: Acute Category: Medical Code(s): R10.31 - Right lower quadrant pain (2) Right testicular pain: Status: Acute Category: Medical Code(s): N50.811 - Right testicular pain Plan Patient is experiencing worsening pain in his right inguinal/groin area I did discuss with him that I do believe he would benefit from right inguinal nerve block. Patient has not had any injections since 2022 however does continue to have the chronic pain in this area. Patient has tried and failed conservative therapy including oral medications, heat and ice, topicals, previous physical therapy and continued at home stretching exercise for longer than 12 weeks. Patient has been seen by multiple specialist including a general surgeon who is not recommending surgical intervention. Patient was reviewed risk and benefits of these injections and he would like to proceed forward with this plan of care. I will also resend a new order of the compounded cream and send in 1 month supply of the diclofenac. Patient will be scheduled for a right inguinal nerve block without fluoroscopic or ultrasound guidance. Patient agrees with this plan of care. Patient has been instructed to contact the clinic with any concerns before the next appointment. Dr. Lyon has reviewed this note and agrees with this plan of care. This note was dictated using voice recognition software and make contain errors or omissions. All injections are used with Lidocaine, Bupivacaine and dexamethasone. Occasionally urine drug screen is needed to verify patient's compliance with our office pain contract. This is ordered based off specific treatments related to chronic pain with the potential to abuse certain medications.
--- OUTSIDE RECORDS SUMMARY | 2024-08-26 11:21 | XMS_ITS | Patient Health Record ---
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 Name Role Phone Ismael Brandt Primary Care Provider Enriqueta Velazquez Unavailable [phone] Magen Mckay Unavailable [phone] Maria Guadalupe Purcell Unavailable [phone] Allergies Allergen (clinical drug ingredient) Drug/Non Drug Allergy documented on EMR Reaction Allergy Type Onset Date Status cefaclor Ceclor (uncoded) Unknown Allergy Act gaudencio PCN (uncoded) Unknown Allergy Active Results Component Value Reference Range Notes MRI : Hip, right, without co ntrast Reviewed date:10/13/2023 03:10:00 PM Interpretation:Negative Performing Lab: Notes/Report: Negative X ray : Hip, right Reviewed date:09/25/2023 03:30:23 PM Interpretation:Negative, consider MR, see 09/24 f/u OV Performing Lab: Notes/Report: Negative, consider MR, see 09/24 f/u OV Ultrasound : Scrotum Reviewed date:01/01/2024 12:15:13 PM Interpretation:possible small varicocele left Performing Lab: Notes/Report: possible small varicocele left X ray : Spine, lumbosacral Reviewed date:01/31/2024 04:54:16 PM Interpretation: Performing Lab: Notes/Report: X ray : Spine, thoracic spin e Reviewed date:01/31/2024 04:54:07 PM Interpretation: Performing Lab: Notes/Report: Medications Medication SIG (Take, Route, Frequency, Duration) Notes Start Date End Date Status Cyclobenzaprine HCl 10 MG 1 tab(s) Orall y three times a day as needed 01/26/2024 Active PARoxetine HCl 30 MG 1 tablet in the mor isatu Orally Once a day for 90 days Active Immunizations Vaccine Route Administration Date Status Comme nts Tetanus Dtap-Daptacel (under 7yrs) IM Intramuscular 08/26/2009 Administered Menactra IM Intramuscular 08/26/2009 Administered COVID 19 Pfizer Unknown 12/24/2020 Administered Problems Problem Type SNOMED Code ICD Code Onset Dates Problem Status W/U Status Risk Notes Problem 870211202 Depression with anxiety (F41.8) Active confirmed Problem 14695734 Bronchitis (J40) Active confirmed Problem 04028549 Allergic rhinitis, unspecified seasonality, unspecified trigger (J30.9) Active confirmed Vital Signs Heart Rate 89 /min 07/05/2024 Blood pressure diastolic 82 mm Hg 07/05/2024 Height 71.50 in 07/05/2024 Blood pressure systolic 120 mm Hg 07/05/2024 Weight 293.8 lbs 07/05/2024 BMI 40.4 kg/m2 07/05/2024 Encounters Encounter Location Date Provider Diagnosis [facility] [address] [facility] [address] [place], [place] [id number] 09/16/2023 Magen Denton Pain in right hip M25.551 and Allergic rhinitis, unspecified seasonality, unspecified trigger J30.9 [facility] [address] [place], [place] [id number] 09/25/2023 Magen Denton Right hip pain M25.5 51 and Allergic rhinitis, unspecified seasonality, unspecified trigger J30.9 [facility] [address] [facility] [address] [place], [place] [id number] 10/02/2023 Magen Denton Right hip pain M25.5 51 [facility] [address] [facility] [address] [place], [place] [id number] 10/20/2023 Maria Guadalupe Crowdy Right hip pain M25.5 51 [facility] [address] [facility] [address] [place], [place] [id number] 12/21/2023 Maria Guadalupe Crowdy Depression with anxiety F41.8 and Scrotal pain N50.82 [facility] [address] [facility] [address] [place], [place] [id number] 01/05/2024 Maria Guadalupe Crowdy Scrotal pain N50.82 ; Right hip pain M25.551 ; Right inguinal pain R10.31 and Depression with anxiety F41.8 [facility] [address] [place], [place] [id number] 01/26/2024 Maria Guadalupe Crowdy Right hip pain M25.5 51 and Mid back pain M54.9 [facility] [address] [place], [place] [id number] 01/31/2024 Maria Guadalupe Crowdy Scrotal pain N50.82 ; Right hip pain M25.551 and Right inguinal pain R10.31 [facility] [address] [place], [place] [id number] 02/09/2024 Maria Guadalupe Crowdy Scrotal pain N50.82 ; Right hip pain M25.551 and Right inguinal pain R10.31 [facility] [address] [place], [place] [id number] 02/23/2024 Maria Guadalupe Crowdy Scrotal pain N50.82 ; Right hip pain M25.551 and Right inguinal pain R10.31 [facility] [address] [place], [place] [id number] 04/04/2024 Maria Guadalupe Crowdy Status post colonoscopy Z98.890 [facility] [address] [place], [place] [id number] 07/05/2024 Maria Guadalupe Crowdy Right hip pain M25.5 51 [facility] [address] [place], [place] [id number] 09/25/2023 Magen Denton Right hip pain M25.5 51 [facility] [address] [place], [place] [id number] 12/21/2023 Maria Guadalupe Crowdy [facility] [address] [place], [place] [id number] 01/01/2024 Maria Guadalupe Crowdy [facility] [address] [place] [id number] 01/17/2024 Maria Guadalupe Purcell [facility] [address] [place], [place] [id number] 02/07/2024 R Milton Brandt Depression with anxiety F41.8 [facility] [address] [place], [place] [id number] 02/22/2024 R Milton De Jesust [facility] [address] [place], [place] [id number] 06/12/2024 R Milton Karly [facility] [address] [place] [id number] 06/17/2024 R Milton Brandt Assessments Encounter Date Diagnosis (ICD Code) Assessment Notes Treatment Notes Treatment Clinical Notes Section Notes 09/16/2023 Pain in right hip (ICD-10 - M25.551) 09/16/2023 Allergic rhinitis, unspecified seasonality, unspecified trigger (ICD-10 - J30.9) OTC antihistamine of choice 09/25/2023 Right hip pain (ICD-10 - M25.551) Missed work on 09/19 & 09/2009/25/2023 Allergic rhinitis, unspecified seasonality, unspecified trigger (ICD-10 - J30.9) Symptoms have resolved 09/25/2023 Right hip pain (ICD-10 - M25.551) 10/02/2023 Right hip pain (ICD-10 - M25.551) Home exercise program provided to patient, TENS unit OTC recommended 10/20/2023 Right hip pain (ICD-10 - M25.551) 12/21/2023 Depression with anxiety (ICD-10 - F41.8) Patient will call his mother and see what medication she takes and let me know so I can decide what to prescribe him. 12/21/2023 Scrotal pain (ICD-10 - N50.82) His previous imaging showed increased vascularity with varicoceles. Will get another U/S while he is waiting on the general surgery consult. 01/05/2024 Scrotal pain (ICD-10 - N50.82) 01/26/2024 Mid back pain (ICD-10 - M54.9) 01/26/2024 Right hip pain (ICD-10 - M25.551) Will need to remain off work. 01/31/2024 Right hip pain (ICD-10 - M25.551) Patient has need seen 4 specialists and no one can give him a reason for his hip pain. He does have a c-scope scheduled at the end of March. He can return to work on Monday but may need restrictions such as shorter 6-8 hours shifts, breaks to sit, and no heavy lifting over 30lb. 01/31/2024 Scrotal pain (ICD-10 - N50.82) 02/07/2024 Depression with anxiety (ICD-10 - F41.8) 02/09/2024 Right hip pain (ICD-10 - M25.551) Patient has need seen 4 specialists and no one can give him a reason for his hip pain. He does have a c-scope scheduled at the end march with gastroenterology. He has returned to work but will need restrictions: shorter shifts no more than 8 hours, breaks to sit during the day, and no heavy lifting over 30lb. These restrictions need to continue through March 07. 02/09/2024 Scrotal pain (ICD-10 - N50.82) 02/23/2024 Right [...] f/u with ortho for further testing. 02/23/2024 Scrotal pain (ICD-10 - N50.82) 04/04/2024 Status post colonoscopy (ICD-10 - Z98.890) Patient will call his short term disability group. The paperwork will likely need to be filled out by Dr. Shepard's office as they have placed him off work the rest of the week. He will speak with the disability group to find out what he needs to have done. 07/05/2024 Right hip pain (ICD-10 - M25.551) [...] could be the source of the pain. 02/23/2024 Right inguinal pain (ICD-10 - R10.31) 02/09/2024 Right inguinal pain (ICD-10 - R10.31) 01/31/2024 Right inguinal pain (ICD-10 - R10.31) 01/05/2024 Right hip pain (ICD-10 - M25.551) 01/05/2024 Right inguinal pain (ICD-10 - R10.31) Patient needs to remain off until his F/U with Dr. Bartlett. He can possible return on Jan 18 depending on the results of testing. 01/05/2024 Depression with anxiety (ICD-10 - F41.8) Plan Of Treatment Pending Test Test Name Order Date Ultrasound : Scrotum 02/21/2022 Next Appt Details Provider Name:Magen Pierre ry, 08/27/2024 10:00:00 AM, [address] [facility] [address] [facility], [address], [place], [place], [id number], Insurance Providers Payer Name Payer Address Payer Phone Subscriber Number Group Number Insured Name Patient Relationship to Insured Coverage Start Date Coverage End Date [facility] [address] [place] [address] [id number] ALBINO MANDUJANO Self - patient is the insured Medical (General) History Surgical History Surgery Date(Month/Year) Tonsillectomy 04/2005 [place] [facility] 2019 C-scope with internal hemorrhoid ablatio n 04/01/24 Hospitalization History Reason Date(Month/Year)
--- OUTSIDE RECORDS SUMMARY | 2024-08-26 11:21 | XMS_ITS | Data Portability ---
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 No acute identifiable abnormality. Scrotal ultrasound results reviewed with patient. [email or web address] Not available 12/21/2021 08:00:47 Plan of Treatment [...] Address Organization Details Recorded Time Tonsillectomy completed [facility] 12/17/2021 08:35:56 [facility] [facility] Extraction completed [facility] 12/17/2021 08:36:02 Imaging Results None recorded. Procedure Notes None recorded. Medical Equipment None Reported. Allergies Allergen ID Allergen Name Allergen Category Reaction Reaction Severity Criticality Documentation Date Start Date Code Code System Note Provider Name and Address Organization Details Recorded Time 571384 Product containin g penicilli n (product) medicatio n Not available Not available Not available 12/17/2021 02265 8001 SNOMED [facility] 08:34:57 133277 [facility] medicatio n Not available Not available Not available 12/17/202153851 5 RxNorm Tamia Gutierrez [facility] 08:35:03 Medications Name Sig Start Date Stop Date Status Note LastModified by Organization Details LastModified Time nabumetone 750 mg tablet Take 1 tablet twice a day by oral route. active Not Available Not Available No t Available Vitals Date Recorded Body height Body mass index (BMI) Body weight Provider Name and Address Organization Details Last Updated DateTime 12/16/2021 182.88 cm 38 kg/m2 937645.86 g Tamia Gutierrez [facility] 12/17/2021 08:34:43 Social History Question Answer Notes LastModified by [employer] Details LastModified Time Tobacco Smoking Status Never Smoker Tamia Gutierrez [facility] 12/17/2021 08:35:49 What Is Your Relationship Status? Single Information not available 12/17/2021 Sex: Unknown Functional Status Question Answer Note LastModified by [employer] Details LastModified Time Do you or have [...] SNOMED-CT Code Diagnosis ICD10 Code Diagnosis Note [id number] HUBERT MIRANDA MD [facility] [address] [place] [address] 12/16/2021 14:41:35 12/21/2021 18:59:49 Pain in scrotum 24799963 N50.82 Inguinal pain 863760445 R10.2 Health Concerns Section Related Observation LastModified by Organization Detai ls LastModified Time None Recorded Concern Status LastModified by Organization Details LastModified Time None Recorded Advance Directives Directive None Recorded Payers Insurance Date Sequence Insurance Name Policy Number Policy Mitchell Covered Member ID Mitchell Member ID Guarantor Name 12/21/2021 1 [employer] [id number] Chavo [place] [id number] Chavo Rita Notes Date Note Type Note Provider Name [...] with small bilateral varicoceles. HUBERT MIRANDA MD [address] [place] [address], [address], [facility] 12/21/2021 08:00:51
== END 2024-08-26 23:59 | disposition home or self-care (01) ==
PROVIDERS: PCP Physician Assistant; Visit Provider Nurse Practitioner Family
DX: R10.31 Right lower quadrant pain (principal); N50.811 Right testicular pain; Z79.899 Other long term (current) drug therapy; Z79.1 Long term (current) use of non-steroidal anti-inflammatories (NSAID)
CPT/HCPCS: 99212; G0463

== ENCOUNTER 2024-09-17 09:23 | Day surgery (SDC) | payer BC, SELFPAY ==
[2024-09-17 09:31] VITALS: BP 148/90; PULSE 64; RESP 16; O2SAT 99; BMI 88.2
[2024-09-17] MEDS: BUPIVACAINE 0.25% 10ML INJ 25 MG IJ (09:53)
[2024-09-17] MEDS: LIDOCAINE 1% 5ML PF VIAL 5 ML (09:53)
[2024-09-17 09:54] VITALS: BP 140/85; PULSE 69; RESP 18; O2SAT 96
[2024-09-17] MEDS: DEXAMETHASONE 10MG/ML 1ML VIAL 10 MG (09:54)
[2024-09-17 09:56] VITALS: BP 140/85; PULSE 69; RESP 18; O2SAT 96
--- NOTE | 2024-09-17 10:00 | EXP.PAIN.PRO ---
Procedure Date: 09/17/24 Time: 10:00 Anesthesiologist:: Carlin Sher CRNA Complications:: None Pre-procedure Diagnosis:: Right inguinal abdominal pain. Post-procedure Diagnosis:: Same Indications for Procedure:: Patient is a pleasant 24-year-old male who comes our clinic today for a right ilioinguinal nerve block. Patient describes right inguinal/abdominal pain as intermittent. Pain intensifies with activity. He rates his pain 6/10. Procedure Details:: Details of the procedure explained to the patient. The patient taken procedure and placed in the supine position. Using fluoroscopy the right anterior iliac crest was identified. The area was cleaned using chlorhexidine as a cleansing solution. Using a 22-gauge 3 and half inch spinal needle the right anterior iliac crest was accessed with ease after negative aspiration 3 cc of 1% lidocaine +3 cc of 0.25% Marcaine and 10 mg of dexamethasone was injected intermittently. Patient tolerated procedure without difficulty. There are no complications. Plan and Disposition:: Patient was discharged without incident.
[2024-09-17 10:01] VITALS: BP 125/83; PULSE 67; RESP 18; O2SAT 99
== END 2024-09-17 10:01 | disposition home or self-care (01) ==
PROVIDERS: PCP Physician Assistant; Visit Provider Nurse Anesthetist, Certified Registered
DX: R10.30 Lower abdominal pain, unspecified (principal); F17.200 Nicotine dependence, unspecified, uncomplicated; Z88.0 Allergy status to penicillin; Z88.8 Allergy status to other drugs, medicaments and biological substances; Z79.899 Other long term (current) drug therapy
CPT/HCPCS: 64425; 77002; J0665; J1100; J2003